=== PATIENT | female | born 1995 | race Caucasian/White ===

== ENCOUNTER 2022-09-16 13:23 | Emergency (ER) | payer BC, MEDICAID ==
[~2022-09-16] VITALS: Ht 154.9 cm; Wt 60.0 kg
[~2022-09-16 13:23] MED LIST: INSULIN; METF-414
[2022-09-16 13:25] VITALS: BP 126/86
[2022-09-16 16:40] LABS: CHLORIDE 108 mEq/L (98-107)
[2022-09-16 16:47] LABS: BASOPHILS % 0.2 % (0.0-2.0); HEMATOCRIT. 32.1 % (36.0-48.0); HEMOGLOBIN. 10.6 g/dL (12.0-16.0); LYMPHOCYTES % 9.8 % (20.0-50.0); MEAN CORPUSCULAR HEMOGLOBIN 26.5 pg (28.0-32.0); MEAN CORPUSCULAR VOLUME 80.4 fL (81.0-99.0); MONOCYTES % 4.9 % (2.0-8.0); NEUTROPHILS % 85.1 % (40.0-76.0); PLATELET 436 x1000/uL (130-400); RED CELL DISTRIBUTION WIDTH 12.8 % (11.6-14.6)
[2022-09-16 16:58] LABS: HCG SCREEN NEGATIVE
[2022-09-16 21:44] LABS: CLARITY URINE TURBID (CLEAR); COLOR URINE YELLOW (YELLOW); KETONES URINE TRACE (NEGATIVE); LEUKOCYTE ESTERASE URINE 2+ (NEGATIVE); NITRITE URINE NEGATIVE (NEGATIVE); OCCULT BLOOD URINE 2+ (NEGATIVE); PROTEIN URINE 4+ (NEGATIVE); SPECIFIC GRAVITY URINE 1.025 (1.005-1.030); UROBILINOGEN URINE 0.2 E.U./dL (0.2-1.0)
[2022-09-16] MEDS ORDERED: CEPH500T MT (22:36)
[2022-09-16] MEDS ORDERED: CEPHALEXIN 250MG CAPSULE PO ONE (22:45)
== END 2022-09-16 22:50 | disposition home or self-care (01) ==
LOC: ER 13:23
DX: J06.9 Acute upper respiratory infection, unspecified (principal); N39.0 Urinary tract infection, site not specified; E10.9 Type 1 diabetes mellitus without complications; I10 Essential (primary) hypertension; Z79.4 Long term (current) use of insulin
CPT/HCPCS: 36415; 71045; 80053; 81003; 81025; 84703; 85025; 99284